=== PATIENT | female | born 1930 | race Caucasian/White ===

== ENCOUNTER 2017-01-08 12:36 | Emergency (ER) | payer OTHER ==
--- NOTE | ~2017-01-08 | CT71 ---
[facility] A Service of [facility] RADIOLOGY TEXT RESULTS PATIENT: REHANA PARR LOCATION: [facility] : [birth year] UNIT #: [id number] AGE: [address]: Roshni Velázquez MD SEX: F ORDER DR: [id number] [facility] [address] [place], [place] [address] [id number] E MR#: [id number] Acc #: [id number] NAME: REHANA PARR : 1930 SEX: F STUDY DATE/TIME: 01/08/2017 13:24 UNIT: [facility] ROOM: STUDY DESCRIPTION: CT Head Wo Contrast Attending Physician: Roshni Velázquez M.D. Ordering Physician: Fredis Prater M.D. Primary Care Physician: Tree Rodriges M.D. MEDICAL IMAGING REPORT This report is preliminary unless electronic signature is present EXAM Head CT without contrast HISTORY Confusion. Generalized weakness, onset this morning. TECHNIQUE/COMPARISON Axial images were obtained without contrast and compared with 05/13/2013. This CT exam was performed with one or more of the following radiation dose reduction techniques: automatic exposure control, adjustment of mA and/or kV according to patient size, and iterative reconstruction. FINDINGS Mild atrophy is noted. There is a small chronic lacunar infarct near the head of the caudate nucleus on the right. There is no evidence of mass lesion, hemorrhage or edema. No midline shift is noted. IMPRESSION Mild atrophy. 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 No acute findings. Dictated by... Kp Vergara M.D. THIS IS AN ELECTRONICALLY VERIFIED REPORT Kp Vergara M.D. at 01/09/2017 10:46 AM RLF/to TD: 01/08/2017 17:37 JOB #: [id number] MEDICAL IMAGING REPORT [facility] A Service [facility] RADIOLOGY TEXT RESULTS PATIENT: REHANA PARR LOCATION: [facility] : [birth year] UNIT #: [id number] AGE: [address]: Roshni Velázquez MD SEX: F ORDER DR: Page 1 of 1 COPY
--- NOTE | ~2017-01-08 | CR72 ---
[facility] A Service of [facility] & [facility] RADIOLOGY TEXT RESULTS PATIENT: REHANA PARR LOCATION: [facility] : [birth year] UNIT #: [id number] AGE: [address]: Roshni Velázquez MD SEX: F ORDER DR: [id number] [facility] [address] [place], [place] [address] [id number] E MR#: [id number] Acc #: [id number] NAME: REHANA PARR : 1930 SEX: F STUDY DATE/TIME: 01/08/2017 13:41 UNIT: [facility] ROOM: STUDY DESCRIPTION: CR Chest Single View Portable Attending Physician: Roshni Velázquez M.D. Ordering Physician: Fredis Prater M.D. Primary Care Physician: Tree Rodriges M.D. MEDICAL IMAGING REPORT This report is preliminary unless electronic signature is present EXAM Portable chest. HISTORY Short of breath onset this morning. TECHNIQUE A single AP view of the chest was obtained and compared with 12/16/2015. FINDINGS Since the previous examination, the heart, lungs, and mediastinum show no changes. Heart size is normal. The aorta is tortuous. Both lungs are clear with normal vascular markings. IMPRESSION No change from the previous exam. No active disease. Dictated by... Kp Vergara M.D. THIS IS AN ELECTRONICALLY VERIFIED REPORT Kp Vergara M.D. at 01/09/2017 10:46 AM SIS/yulia TD: 01/08/2017 17:51 JOB #: [id number] MEDICAL IMAGING REPORT Page 1 of 1 COPY
--- NOTE | ~2017-01-08 | CT104 ---
[facility] A Service of [facility] RADIOLOGY TEXT RESULTS PATIENT: REHANA PARR LOCATION: [facility] : [birth year] UNIT #: [id number] AGE: [address]: Roshni Velázquez MD SEX: F ORDER DR: [id number] [facility] [address] [place], [place] [address] [id number] E MR#: [id number] Acc #: [id number] NAME: REHANA PARR : 1930 SEX: F STUDY DATE/TIME: 01/08/2017 13:24 UNIT: [facility] ROOM: STUDY DESCRIPTION: CT Orbits Wo Contrast Attending Physician: Roshni Velázquez M.D. Ordering Physician: Fredis Prater M.D. Primary Care Physician: Tree Rodriges M.D. MEDICAL IMAGING REPORT This report is preliminary unless electronic signature is present EXAM CT orbits 01/08/2017 INDICATIONS Right eye pain after injection for macular degeneration on Friday of this week. There is associated redness and swelling. TECHNIQUE Axial noncontrast images were obtained through the orbits. Multiplanar reformats were obtained. This CT exam was performed with one or more of the following radiation dose reduction techniques: automatic exposure control, adjustment of mA and/or kV according to patient size, and iterative reconstruction. COMPARISON STUDIES Comparison is made with head CT from the same day. FINDINGS No fractures are seen. Paranasal sinuses are clear. Temporomandibular joints are normal. The globes appear within normal limits. There is no periorbital inflammation or intraorbital inflammation by CT. IMPRESSION Negative CT of the orbits. The bony structures are normal. The globes are normal. There is no evidence of periorbital or intraorbital inflammation on either side. There are no fluid collections. Dictated by... Kp Martines Jr., M.D. THIS IS AN ELECTRONICALLY VERIFIED REPORT Kp aMrtines Jr., M.D. at 01/09/2017 11:30 AM [facility] A Service of [facility] RADIOLOGY TEXT RESULTS PATIENT: REHANA PARR [id number] [birth year] UNIT #: [id number] AGE: [address]: Roshni Velázquez MD SEX: F ORDER DR: Mitzi TD: 01/08/2017 18:10 JOB #: [id number] MEDICAL IMAGING REPORT Page 1 of 1 COPY
--- NOTE | ~2017-01-08 | EKG ---
PATIENT: REHANA PARR UNIT #: [id number] Ventricular Rate: 80 BPM Atrial Rate: 80 BPM P-R Interval: 144 ms QRS Duration: 90 ms Q-T Interval: 418 ms QTC Calculation(Bezet): 482 ms P Woody: 78 degrees Calculated R Woody: -15 degrees Calculated T Woody: 21 degrees Diagnosis Line: Normal sinus rhythm Nonspecific ST abnormality Diagnosis Line: Lateral leads Baseline wander Diagnosis Line: Borderline ECG Diagnosis Line: When compared with ECG of 13-MAY-2013 01:05, Diagnosis Line: Criteria for Septal infarct are no longer Present Diagnosis Line: Nonspecific T wave abnormality, improved in Diagnosis Line: Lateral leads Diagnosis Line: QT has lengthened Diagnosis Line: Confirmed by YOVANNY DESAI MD ([id number]) on 01/10/2017 Diagnosis Line: 9:30:13 AM INTERPRETING MD: LLOYD IGLESIAS
[~2017-01-08 12:36] MED LIST: ACETAMINOPHEN PO; ACTONEL PO; ACTONEL150 MG PO; ALBUTEROL17 GM INH; ALLOPURINOL300 MG PO; AMITRIPTYLINE H25 MG PO; ASPIRIN ENTERI325 M1 PO; ASPIRIN81 M1 PO; CALCIUM +D & M1 EACH PO; CALCIUM CARBONATE PO; CELEBREX PO; CENTRUM PO; CIPRO250 MG PO; COLACE PO; COLCRYS0.6 MG PO; CORDARONE200 M1 PO; COUMADIN PO; COUMADIN5 MG PO; DEMADEX PO; DIAZEPAM PO; DOCU SOFT100 M1 PO; FISH OIL 1,0001 CAP PO; FLAGYL PO; FLEXERIL10 M1 PO; FLOMAX0.4 M1 PO; GABAPENTIN600 MG PO; HYDROCODON-ACE1 EAC5 PO; HYDROCODON-ACE1 EAC7 PO; K-DUR10 MEQ PO; KCL PO; LASIX PO; LASIX20 MG PO; LEVAQUIN PO; LEVOTHYROXINE100 MCG PO; LIDODERM30 EA TOP; LIPITOR20 MG PO; LOVENOX SUBQ; LYRICA PO; MEDROL PO; MICRO-K10 MEQ PO; MIRALAX17 GM PO; NEURONTIN600 MG PO; NORCO 10-325 TA1 TAB PO; NORCO 10/325 TA1 TAB PO; NORCO 5/325 TAB1 TAB PO; PAIN RELIEF325 MG PO; PANTOPRAZOLE SO40 MG PO; POTASSIUM99 M1 PO; PREDNISONE10 MG PO; PREDNISONE10 MG/DOSE PO; PROAIR HFA8.5 GM INH; RESOURCE PO; SENOKOT TO GO8.6 MG PO; STOOL SOFTENER100 M1 PO; SYNTHROID PO; TIROSINT88 MCG PO; VICODIN 5/500 T1 TAB PO; VITAMIN B-1000 MCG/1 IM; VITAMIN D PO; WARFARIN SODIUM2 M1 PO; ZITHROMAX PO; ZOCOR20 MG PO
[2017-01-08 13:19] LABS: POC - CKMB 5.7 ng/mL (0.0-7.9); POC - TROPONIN <0.05 ng/mL (<=0.05)
[2017-01-08 13:21] LABS: BASOPHIL% 0.6 % (0-2.5); EOSINOPHIL# 0.1 X10e3 (0-0.7); HEMATOCRIT 41.2 % (35.0-45.0); HEMOGLOBIN 13.3 gm/dL (12.0-16.0); LYMPHOCYTE# 1.4 X10e3 (1.0-3.5); LYMPHOCYTE% 24.8 % (17.0-45.0); MEAN CELL VOLUME 93.7 FL (83-96); MEAN CORPUSCULAR HEMOGLOBIN 30.3 PG (28-34); MEAN CORPUSCULAR HGB CONC 32.3 g/dL (30-36); MONOCYTE# 0.5 X10e3 (0-1.0); MONOCYTE% 9.9 % (3.0-12.0); NEUTROPHIL# 3.5 X10e3 (1.5-7.1); NEUTROPHIL% 63.7 % (40-75); PLATELET COUNT 200 X10e3 (140-420); RED BLOOD COUNT 4.39 X10e (3.90-5.30); RED CELL DISTRIBUTION WIDTH 14.3 % (11.0-15.5); WHITE BLOOD COUNT 5.6 X10e3 (4.0-10.5)
[2017-01-08 13:22] LABS: DIFF IND NO
[2017-01-08 13:40] LABS: INR 1.6; PROTHROMBIN TIME (PATIENT) 17.2 SECONDS (9.6-11.5)
[2017-01-08 14:20] LABS: ALBUMIN SERUM 4.3 g/dL (3.5-5.0); ALKALINE PHOSPHATASE 50 U/L (32-92); ALT (SGPT) 21 U/L (10-40); AST (SGOT) 38 U/L (10-42); BILIRUBIN, DIRECT 0.2 mg/dL (0.0-0.2); BILIRUBIN,INDIRECT 0.5 mg/dL (0.0-0.9); BILIRUBIN,TOTAL 0.7 mg/dL (0.2-2.0); BLOOD UREA NITROGEN 14 mg/dL (9-23); CALCIUM SERUM 9.5 mg/dL (8.4-10.2); CARBON DIOXIDE 29 mmol/L (22-31); CHLORIDE 102 mmol/L (100-111); CREATININE SERUM 0.8 mg/dL (0.6-1.4); GLOM FILT RATE Estimated ABOVE60 mL/min (>60); GLUCOSE FASTING 105 mg/dL (70-110); POTASSIUM 3.7 mmol/L (3.5-5.1); PROTEIN TOTAL SERUM 7.9 g/dL (6.0-8.3); SODIUM 141 mmol/L (135-145)
[2017-01-08 14:33] LABS: URINE SOURCE CLEAN CATCH
[2017-01-08 14:42] LABS: URINE APPEARANCE CLEAR; URINE BILIRUBIN NEG (NEG); URINE BLOOD NEG (NEG); URINE COLOR YELLOW; URINE GLUCOSE NEG (NEG); URINE KETONE NEG (NEG); URINE LEUKOCYTE ESTERASE NEG (NEG); URINE NITRATE NEG (NEG); URINE PH 7.5 (5-8); URINE PROTEIN NEG (NEG); URINE SPECIFIC GRAVITY 1.009 (1.003-1.035); URINE UROBILINOGEN 0.2 MG/DL (NEG)
[2017-01-08 14:49] LABS: CULTURE INDICATED? NO
== END 2017-01-08 15:20 | disposition home or self-care (01) ==
LOC: CED 12:36
PROVIDERS: Emergency Medicine
DX: R41.0 Disorientation, unspecified (principal); R41.82 Altered mental status, unspecified; H57.10 Ocular pain, unspecified eye
CPT/HCPCS: 36415; 70450; 70480; 71010; 80048; 80076; 81003; 82140; 82553; 84484; 85025; 85610; 85652; 93005; 99284